=== PATIENT | male | born 1970 | race Hispanic/Latino ===

== ENCOUNTER 2023-09-13 15:58 | Observation (INO) | payer BC ==
[~2023-09-13] VITALS: Ht 160 cm; Wt 78.1 kg
[2023-09-13 17:04] LABS: BASOPHILS # (AUTO) 0.03 K/uL (0.00-0.20); BASOPHILS % (AUTO) 0.4 % (0.0-5.0); EOSINOPHILS # (AUTO) 0.04 K/uL (0.00-0.70); EOSINOPHILS % (AUTO) 0.5 % (0.0-8.0); HEMATOCRIT 38.8 % (42-54); IMMATURE GRANULOCYTE ABSOLUTE 0.04 K/uL (0-1); LYMPHOCYTES % (AUTO) 23.3 % (21.0-51.0); MEAN CORPUSCULAR HEMOGLOBIN 31.9 pg (27.0-33.0); MEAN CORPUSCULAR HGB CONC 33.8 g/dL (32.0-36.0); MEAN CORPUSCULAR VOLUME 94.4 fL (79-99); MONOCYTES # (AUTO) 0.7 K/uL (0.1-1.0); MONOCYTES % (AUTO) 8.8 % (3.0-13.0); NEUTROPHILS # (AUTO) 5.6 K/uL (1.8-7.7); NEUTROPHILS % (AUTO) 66.5 % (40.0-77.0); PLATELET COUNT (AUTO) 245 K/uL (130-400); RED BLOOD CELL COUNT(AUTO) 4.11 MIL/uL (4.50-6.20); RED CELL DISTRIBUTION WIDTH 12.3 % (11.0-15.5); WHITE BLOOD COUNT (AUTO) 8.4 K/uL (4.8-10.8)
[2023-09-13 17:17] LABS: INR <= 0.93 (0.85-1.15); PROTHROMBIN TIME 10.1 SEC (9.6-11.6)
[2023-09-13 17:18] LABS: PARTIAL THROMBOPLASTIN TIME 30.3 SEC (26.3-35.5)
[2023-09-13 17:43] LABS: CREATININE 0.9 mg/dL (0.5-1.3); POTASSIUM 3.7 mmol/L (3.5-5.1)
[2023-09-13 17:48] LABS: ALBUMIN 3.3 g/dL (3.5-5.0); BILIRUBIN,TOTAL 0.1 mg/dL (0.2-1.0); TOTAL PROTEIN, SERUM 7.5 g/dL (6.0-8.3)
[2023-09-13 18:00] VITALS: O2SAT 98
[2023-09-13 18:09] VITALS: BP 143/95; PULSE 92; RESP 16
[2023-09-13 20:00] VITALS: O2SAT 98
[2023-09-13] MEDS: 0.9%NACL 1000ML 1,000 ML IV SCH (20:38)
[2023-09-13] MEDS: ACETAMINOPHEN 500 MG TABLET PO PRN (20:44)
[2023-09-14] VITALS (20 sets, daily range): BP systolic 124–162; BP diastolic 50–104; PULSE 64–119; RESP 16–22; O2SAT 97–98
[2023-09-14] MEDS: HYDRALAZINE 20MG/ML VIAL IV ONE ×2 (05:40→08:32)
[2023-09-14] MEDS ORDERED: IOHEXOL-350 50ML VIAL IV ONE (10:47)
[2023-09-14] MEDS: CLONIDINE HCL 0.1 MG TABLET PO ONE ×2 (12:10→13:20)
[2023-09-14] MEDS ORDERED: CLONIDINE HCL 0.1 MG TABLET PO PRN (17:00)
[2023-09-14] MEDS ORDERED: ONDANSETRON 4MG INJ IVP PRN (17:00)
[2023-09-14] MEDS ORDERED: MORPHINE 2 MG SYG IVP PRN (17:00)
[2023-09-15 04:00] VITALS: BP 142/97; PULSE 69; RESP 16
[2023-09-15 08:00] VITALS: BP 158/85; PULSE 76; RESP 18; O2SAT 97
[2023-09-15 12:00] VITALS: BP 129/81; PULSE 65; RESP 18
== END 2023-09-15 13:55 | disposition home or self-care (01) ==
LOC: EDH 15:58 → EDHIP 15:59 → 3DH 17:35
PROVIDERS: ADMIT Internal Medicine Hematology & Oncology; ATTEND Internal Medicine Hematology & Oncology
DX: C76.0 Malignant neoplasm of head, face and neck (principal); I10 Essential (primary) hypertension; R13.10 Dysphagia, unspecified; Z79.899 Other long term (current) drug therapy
CPT/HCPCS: 96361 ×2; 80053; 85025; 85610; 85730; 36415; 96374; 96376; 88305 ×2; 88112; 70492; 76942; G0378 ×45; J0360 ×2; Q9967; C1887